=== PATIENT | female | born 1980 | race Caucasian/White ===

== ENCOUNTER 2022-08-08 18:21 | Emergency (ER) | payer SELFPAY ==
--- OUTSIDE RECORDS SUMMARY | 2022-08-08 18:24 | XMS REPORT | Continuity of Care Document ---
:1980 Author Organization [facility] t Address [address] [place] [address] Care Team Providers Name Role Phone AMBREEN_DUNCAN Attending Clinician Unavailable AMBREEN_ROSALINDA Admitting Clinician Unavailable Problems Condition Condition Condition Status Onset Resolution Last Treating Co mments Source Name Details Category Date Date Treatment Clinician Date Female Female Problem Active [facility] hirsutism Hirsutism 8-02 da 00:00: Medical 00 Group Oral Oral Problem Active [facility] contracept Contracept 8-02 da ion ion 00:00: Medical Group Menorrhagi Menorrhagi Problem Active [facility] a a 4-02 da 00:00: Medical 00 Group IUD IUD Problem Active [facility] contracept Contracept 4-02 da ion ion 00:00: Medical Group Acute Acute Problem Active [facility] endometrit Endometrit 7-16 da is is 00:00: Medical 00 Group Candidiasi Candidiasi Problem Active [facility] s [facility] Obesity Obesity Problem Active [facility] Dysmenorrh Dysmenorrh Problem Active [facility] Allergies, Adverse Reactions, Alerts Allergy Allergy Status Severity Reaction(s) Onset Inactive Treating Comm ents Source Name Type Date Date Clinician Latex Allergy Active [facility] to da substanc [facility] e Group Social History Smoking Status Start Date Stop Date Source Never Smoker [facility] Medications Ordered Filled Start Stop Current Ordering Indication Dosage Frequency Signature Comments Components Source Medication Medication Date Date Medication? Clinician (SIG) Name Name diazepam 10 diazepam 10 No diazepam [facility] mg tablet mg tablet 10 mg da TAKE ONE TAKE ONE tablet Medic al (1) (1) TAKE ONE Group TABLET(S) TABLET(S) (1) BY MOUTH 1 BY MOUTH 1 TABLET(S) HOUR BEFORE HOUR BEFORE BY MOUTH 1 APPOINTMENT APPOINTMENT HOUR . . BEFORE APPOINTMEN T. diethylprop diethylprop No 1 TID diethylpro [facility] ion 25 mg ion 25 mg pion 25 mg da tablet Take tablet Take tablet Medical 1 tablet 3 1 tablet 3 Take 1 G roup times a day times a day tablet 3 by oral by oral times a route route day by before before oral route meals. meals. before meals. doxycycline doxycycline No doxycyclin [facility] monohydrate monohydrate e d a 100 mg 100 mg monohydrat Medic al capsule capsule e 100 mg Group capsule montelukast montelukast No montelukas [facility] 10 mg 10 mg t 10 mg da tablet tablet tablet Medical Group phentermine phentermine No 1capsul Q1D phentermin [facility] 30 mg 30 mg e(s) e 30 mg da capsule capsule capsule Medica l Take 1 Take 1 Take 1 Group capsule capsule capsule every day every day every day by oral by oral by oral route. route. route. Sprintec Sprintec No 1 Q1D Sprintec [facility] (28) 0.25 (28) 0.25 (28) 0.25 da mg-35 mcg mg-35 mcg mg-35 mcg Medical tablet Take tablet Take tablet Group 1 tablet 1 tablet Take 1 every day every day tablet by oral by oral every day route. route. by oral route. Vital Signs Vital Name Observation Time Observation Value Comments Source BP Diastolic 2019-04-02 00:00:00 90 mm[Hg] [facility] Height 2019-04-02 00:00:00 61 [in_i] [facility] BMI (Body Mass 2019-04-02 00:00:00 49.1 kg/m2 [facility]) Group BP Systolic 2019-04-02 00:00:00 137 mm[Hg] [facility] Body Weight 2019-04-02 00:00:00 259.8 [lb_av] [facility] Procedures This patient has no known procedures. Plan of Care Planned Activity Planned Date Details Comments Source Diagnostic Test 2019-04-02 urinalysis, [facility] Pending 00:00:00 dipstick [code = Group urinalysis, dipstick] Diagnostic Test 2019-04-02 [facility] Pending 00:00:00 [code = wet mount, Group vaginal] Diagnostic Test 2019-04-02 CT + NG DNA, PCR, [facility] Pending 00:00:00 cervical [code = Group CT + NG DNA, PCR, cervical] Diagnostic Test 2019-04-02 pap test, [facility] dical Pending 00:00:00 thinprep, cervical Group [code = pap test, thinprep, cervical] Encounters Start End Encounter Admission Attending Care Care Encounter Source Date/Time Date/Time Type Type Clinicians Facility Department ID 2022-03-18 2022-03-18 Outpatient AMBREEN_FAR MEHOP MEHOP [id number] [facility] 01:10:00 01:10:00 [facility] 0718 da [facility] Outre h Program 2019-04-02 2019-04-02 Andres [facility] [place] - [id number] [facility] 00:00:00 00:00:00 Discovery maricruz Mercer MD: [address] [facility] [address], [place] [address] , Ph. [phone] Results Test Description Test Time Test Comments Results Result Comments Source Urinalysis macro (dipstick) panel - Urine 2019-04-02 09:41:4 3 Test Item Value Reference Range Interpretation Comme nts Leukocytes (test code = Leukocytes) Negative Nitrite (test code = Nitrite) negative Urobilinogen (test code = Urobilinogen) .2 Protein (test code = Protein) Negative pH (test code = pH) 6.0 Blood (test code = Blood) Negative Specific Brea (test code = Specific Brea) 1.015 Ketone (test code = Ketone) Negative Bilirubin (test code = Bilirubin) Negative Glucose (test code = Glucose) Negative Appearance (test code = Appearance) Clear Color (test code = Color) Yellow [facility]
--- NOTE | 2022-08-08 19:32 | EDPHYS ---
Physician Documentation [facility] Name: Jillian Marino Age: 41 yrs Sex: Female : 1980 Arrival Date: 08/08/2022 Time: 18:21 Bed 12 Private MD: ED Physician Scott Hwang HPI: 08/08 18:36 This 41 yrs old Female presents to ER via Unassigned with complaints of Diarrhea, snw Breathing Difficulty, Fever. 18:36 The patient presents to the emergency department with nausea, vomiting, diarrhea. snw Onset: The symptoms/episode began/occurred suddenly, 2 hour(s) ago, and became persistent. Possible causes: unknown. The symptoms are aggravated by nothing. The symptoms are alleviated by nothing. Associated signs and symptoms: Pertinent positives: diarrhea, fever, nausea, vomiting. Severity of symptoms: At their worst the symptoms were severe in the emergency department the symptoms are unchanged. The patient has not experienced similar symptoms in the past. The patient has not recently seen a physician. no family members with any illness at this time. Historical: - Allergies: 19:59 Latex, Natural Rubber; tw5 - PMHx: 19:59 tachycardia; tw5 - PSHx: 19:59 section; tw5 ROS: 18:37 Eyes: Negative for injury, pain, redness, and discharge, ENT: Negative for injury, snw pain, and discharge, Neck: Negative for injury, pain, and swelling, Cardiovascular: Negative for chest pain, palpitations, and edema, Respiratory: Negative for shortness of breath, cough, wheezing, and pleuritic chest pain. 18:37 Back: Negative for injury and pain, : Negative for injury, bleeding, discharge, and swelling, MS/Extremity: Negative for injury and deformity, Skin: Negative for injury, rash, and discoloration, Neuro: Negative for headache, weakness, numbness, tingling, and seizure, Psych: Negative for depression, anxiety, suicide ideation, homicidal ideation, and hallucinations. 18:37 Constitutional: Positive for body aches, fatigue, fever, malaise, poor PO intake. 18:37 Abdomen/GI: Positive for abdominal pain, nausea, vomiting, and diarrhea, pt describes cramping and "heaving" in rectal area. Exam: 18:46 Constitutional: This is a well developed, well nourished patient who is awake, alert, snw and in no acute distress. Head/Face: Normocephalic, atraumatic. Eyes: Pupils equal round and reactive to light, extra-ocular motions intact. Lids and lashes normal. Conjunctiva and sclera are non-icteric and not injected. Cornea within normal limits. Periorbital areas with no swelling, redness, or edema. ENT: Nares patent. No nasal discharge, no septal abnormalities noted. Tympanic membranes are normal and external auditory canals are clear. Oropharynx with no redness, swelling, or masses, exudates, or evidence of obstruction, uvula midline. Mucous membranes moist. Neck: Trachea midline, no thyromegaly or masses palpated, and no cervical lymphadenopathy. Supple, full range of motion without nuchal rigidity, or vertebral point tenderness. No Meningismus. Chest/axilla: Normal chest wall appearance and motion. Nontender with no deformity. No lesions are appreciated. Cardiovascular: Regular rate and rhythm with a normal S1 and S2. No gallops, murmurs, or rubs. Normal PMI, no JVD. No pulse deficits. Respiratory: Lungs have equal breath sounds bilaterally, clear to auscultation and percussion. No rales, rhonchi or wheezes noted. No increased work of breathing, no retractions or nasal flaring. Abdomen/GI: Soft, non-tender, with normal bowel sounds. No distension or tympany. No guarding or rebound. No evidence of tenderness throughout. Back: No spinal tenderness. No costovertebral tenderness. Full range of motion. MS/ Extremity: Pulses equal, no cyanosis. Neurovascular intact. Full, normal range of motion. Neuro: Awake and alert, GCS 15, oriented to person, place, time, and situation. Cranial nerves II-XII grossly intact. Motor strength 5/5 in all extremities. Sensory grossly intact. Cerebellar exam normal. Normal gait. 18:46 Skin: Appearance: Color: pale. Vital Signs: 19:58 BP 123 / 100; Pulse 80; Resp 18; Temp 98.; Pulse Ox 100% ; Weight 117.93 kg; Height 5 tw5 ft. 1 in. (154.94 cm); Pain 1/10; 19:58 Body Mass Index 49.13 (117.93 kg, 154.94 cm) tw5 MDM: 18:33 Patient medically screened. snw 18:38 Data reviewed: vital signs, nurses notes. snw 19:08 Transition of care: After a detail discussion of the patient's case, care is snw transferred to Iban Hill NP. 20:54 ED course: Patient reported no improvement in nausea with Zofran will give patient pm1 Phenergan. 08/08 18:33 Order name: COVID-19/FLU A+B/RSV; Complete Time: 21:13 snw Administered Medications: 19:57 Drug: Zofran (Ondansetron) 4 mg Route: PO; tw5 21:00 Follow up: Response: No adverse reaction tw5 19:57 Drug: LoMOTIL (diphenoxylate-atropine) 1 tabs Route: PO; tw5 21:01 Follow up: Response: No adverse reaction tw5 21:00 Drug: Promethazine 25 mg Route: PO; tw5 21:01 Follow up: Response: No adverse reaction tw5 22:34 Drug: Bentyl (dicyclomine) 20 mg Route: IM; Site: left deltoid; 22:34 Follow up: Response: Medication administered at discharge. Disposition Summary: 08/08/22 22:10 Discharge Ordered Location: Home sb4 Problem: new sb4 Symptoms: are unchanged sb4 Condition: Stable sb4 Diagnosis - Noninfective gastroenteritis and colitis, unspecified sb4 Followup: sb4 - With: Private Physician - When: As needed - Reason: Worsening of condition, Recheck today's complaints, Re-evaluation by your physician Discharge Instructions: - Discharge Summary Sheet sb4 - Viral Gastroenteritis, Adult sb4 Forms: - Medication Reconciliation Form sb4 - Thank You Letter sb4 - Antibiotic Education sb4 - Prescription Opioid Use sb4 Prescriptions: - promethazine 25 mg Oral Tablet - take 1 tablet by ORAL route every 6 hours As needed; 10 tablet; Refills: 0, sb4 Product Selection Permitted - dicyclomine 10 mg Oral Capsule - take 2 capsules by ORAL route 3 times per day Take as needed for diarrhea and sb4 abdominal cramps.; 18 capsule; Refills: 0, Product Selection Permitted Addendum: 08/11/2022 19:09 Co-signature as Attending Physician, Scott hammond Signatures: Dispatcher [employer] EDNorma Sheldon FNP-C FNP-Csnw Scott Hwang MD MD rn Iban Hill, COMPLIANCE SPECIALIST COMPLIANCE SPECIALIST pm1 Zeny Ware, NASIM RN Aisha Caputo tw5 Jo-Ann Koch PA-C PAMeera sb4 Corrections: (The following items were deleted from the chart) 08/08 18:48 18:37 Abdomen/GI: Positive for abdominal pain, nausea, vomiting, and diarrhea, snw snw 19:36 19:31 Before Triage hb tw5 19:36 19:31 unknown [facility]
--- NOTE | 2022-08-08 19:32 | ER ---
Nurse's Notes [facility] Name: Jillian Marino Age: 41 yrs Sex: Female : 1980 Arrival Date: 08/08/2022 Time: 18:21 Bed 12 Private MD: Diagnosis: Noninfective gastroenteritis and colitis, unspecified Presentation: 08/08 19:58 Chief complaint: Patient states: " i have been shitting my brains out since yesteray. tw5 yesterday it wasn't as bad." Triage was delayed at the patient was unable to leave the bathroom. Coronavirus screen: Vaccine status: Patient reports being unvaccinated. Ebola Screen: Patient negative for fever greater than or equal to 101.5 degrees Fahrenheit, and additional compatible Ebola Virus Disease symptoms Patient denies exposure to infectious person. Patient denies travel to an Ebola-affected area in the 21 days before illness onset. 19:58 Method Of Arrival: Ambulatory tw5 Triage Assessment: 19:59 General: Appears uncomfortable, sitting on the toilet. GI: Reports cramping, diarrhea. tw5 Historical: - Allergies: 19:59 Latex, Natural Rubber; tw5 - PMHx: 19:59 tachycardia; tw5 - PSHx: 19:59 section; tw5 Assessment: 20:00 General: Appears uncomfortable, Behavior is calm. Neuro: Level of Consciousness is tw5 awake, alert, obeys commands. GI: Bowel sounds hyperactive in right lower quadrant and left lower quadrant. Vital Signs: 19:58 BP 123 / 100; Pulse 80; Resp 18; Temp 98.; Pulse Ox 100% ; Weight 117.93 kg; Height 5 tw5 ft. 1 in. (154.94 cm); Pain 1/10; 19:58 Body Mass Index 49.13 (117.93 kg, 154.94 cm) tw5 ED Course: 18:21 Patient arrived in ED. as 18:33 Norma Bernal FNP-C is PHCP. snw 18:33 Scott Hwang MD is Attending Physician. snw 19:07 PHCP role handed off by Norma Bernal FNP-C pm1 19:07 Iban Hill NP is PHCP. pm1 19:31 Patient's name was called from ER lobby. No response. Unable to locate patient. Will hb disposition as left without being seen by a provider. 19:37 Aisha Hartman is Primary Nurse. tw5 20:00 Patient has correct armband on for positive identification. Pulse ox on. NIBP on. Door tw5 closed. Noise minimized. Moved to private room. Warm blanket given. Verbal reassurance given. Assisted to bedside commode. 20:00 COVID swab sent to lab. Flu and/or RSV swab sent to lab. tw 20: COVID-19/FLU A+B/RSV Sent. tw 21:08 PHCP role handed off by Iban Hill, RUBENS sb4 21:08 Jo-Ann Koch PA-C is PHCP. sb4 Administered Medications: 19:57 Drug: Zofran (Ondansetron) 4 mg Route: PO; 21:00 Follow up: Response: No adverse reaction tw 19:57 Drug: LoMOTIL (diphenoxylate-atropine) 1 tabs Route: PO; 21:01 Follow up: Response: No adverse reaction 21:00 Drug: Promethazine 25 mg Route: PO; tw 21:01 Follow up: Response: No adverse reaction tw5 22:34 Drug: Bentyl (dicyclomine) 20 mg Route: IM; Site: left deltoid; hb 22:34 Follow up: Response: Medication administered at discharge. hb Outcome: 19:31 Patient left the ED. hb 22:10 Discharge ordered by . sb4 22:35 Patient left the ED. hb Signatures: Norma Bernal FNP-C MONEY MANAGER-Ira Hurley as Iban Hill NP PIG CASTING MACHINE OPERATOR pm1 Zeny Ware, RN RN Aisha Hartman tw Jo-Ann Koch PA-C PA-C sb4
[2022-08-08] MEDS ORDERED: ONDANSETRON 4 MG (ODT) TAB ONE (19:42)
[2022-08-08] MEDS ORDERED: DIPHENOX/ATROP SULF 1 TAB PO ONE (19:42)
[2022-08-08] MEDS ORDERED: PROMETHAZINE 25 MG TABLET ONE (20:58)
[2022-08-08 21:05] LABS: SARS-COV-2 RT PCR NEGATIVE (NEGATIVE)
[2022-08-08] MEDS ORDERED: DICYCLOMINE HCL 20 MG/2 ML AMP IM ONE (22:28)
[2022-08-08 23:50] VITALS: BP 123/100; TEMP 98; O2SAT 100
== END 2022-08-08 22:35 | disposition home or self-care (01) ==
LOC: ER 18:21
DX: K52.9 Noninfective gastroenteritis and colitis, unspecified (principal); Z20.822 Contact with and (suspected) exposure to COVID-19; Z91.040 Latex allergy status; Z91.048 Other nonmedicinal substance allergy status
CPT/HCPCS: 0241U; 96372; 99283; J0500; Q0162; Q0169